=== PATIENT | male | born 1955 | race Caucasian/White ===

== ENCOUNTER 2020-07-09 13:10 | Outpatient (CLI) | payer MEDICARE, SELFPAY ==
[2020-07-09 13:25] LABS: Hematocrit 37.5 % (37.0-46.0); Hemoglobin 12.9 g/dL (12.4-15.3); Immature Granulocyte Absolute 0.03 K/mm3 (0.00-0.00); Immature Granulocyte Percent A 0.5 % (0.0-0.0); Immature Reticulocyte Fraction 3.5 % (2.0-16.52); Lymphocytes Absolute Auto 1.35 K/mm3 (1.10-4.50); Lymphocytes Percent Auto 23.1 % (18.0-42.0); Mean Corpuscular HGB Conc 34.4 g/dL (32.0-36.0); Mean Corpuscular Hemoglobin 30.4 pg (27.0-31.0); Mean Corpuscular Volume 88.2 fL (78.0-102.0); Mean Platelet Volume 8.7 fl (8.7-11.0); Monocytes Absolute Auto 0.46 K/mm3 (0.10-0.90); Monocytes Percent Auto 7.9 % (2.0-11.0); Neutrophils Percent Auto 68.5 % (50.0-70.0); Platelet Count Result 213 K/mm3 (150-420); Red Blood Count 4.25 M/mm3 (4.70-6.10); Red Cell Distribution Width 14.9 % (11.6-14.4); Reticulocyte Hemoglobin Conten 36.2 pg (28.0-35.0); Reticulocyte Percent 1.33 % (0.50-1.50); Reticulocytes Absolute 0.06 M/mm3 (0.02-0.1); White Blood Count 5.9 K/mm3 (4.8-10.8)
[2020-07-09 15:13] LABS: Ferritin 74 ng/mL (26-388); Iron 164 ug/dL (65-175); Percent Iron Saturation 58 % (12-57)
[2020-07-12 01:54] LABS: Methylmalonic Acid 269 nmol/L (87-318)
== END 2020-07-09 13:11 | disposition home or self-care (01) ==
LOC: CHSLAB 13:16
PROVIDERS: PCP Internal Medicine; Visit Provider Internal Medicine
DX: D64.9 Anemia, unspecified (principal)
CPT/HCPCS: 36415; 82728; 83540; 83550; 83921; 85025; 85046; 88321

== ENCOUNTER 2021-05-12 09:37 | Outpatient (CLI) | payer MEDICARE, MEDICAID, SELFPAY ==
--- NOTE | ~2021-05-12 | XR_ITS ---
EXAMINATION: XR chest 2V 05/12/2021 10:04 INDICATION: Anemia and weight loss PROCEDURE: 2 view chest COMPARISON: Comparison to multiple prior studies sequentially, with oldest reviewed study dated 03/13. FINDINGS: The lungs are clear. The cardiomediastinal silhouette is within normal limits. There are no pleural effusions. There is no pneumothorax suspected. The lungs are hyperinflated which is cons istent with, but not diagnostic of chronic obstructive pulmonary disease. IMPRESSION: 1: NO ACUTE CARDIOPULMONARY DISEASE. Reviewed, dictated and finalized at location A.
== END 2021-05-12 09:38 | disposition home or self-care (01) ==
LOC: CHSIMG 09:41
PROVIDERS: PCP Internal Medicine; Visit Provider Internal Medicine
DX: D64.9 Anemia, unspecified (principal); R63.4 Abnormal weight loss; Z12.5 Encounter for screening for malignant neoplasm of prostate
CPT/HCPCS: 71046

== ENCOUNTER 2024-07-18 00:07 | Day surgery (SDC) | payer MEDICARE, SELFPAY ==
[2024-07-06 13:11] VITALS: BMI 27.1
--- NOTE | 2024-07-06 13:48 | PC.NURSE ---
Information on Black was received from [facility] 07/06/24 I spoke with November confirmed appointment and colonoscopy instructions she stated she was familiar with this procedure.
[2024-07-18 06:25] VITALS: BP 140/85; PULSE 75; RESP 18; TEMP 36.3; O2SAT 99
[2024-07-18] MEDS: LACTATED RINGERS 1,000 ML 150 ML IV CONT (06:35)
--- NOTE | 2024-07-18 07:29 | P.HP_ITS ---
H&P: HPI History of Present Illness Date/Time: 07/18/24 07:29 Chief Complaint: Screening for colorectal cancer Narrative: this is a 69-year-old man who presents for colonoscopy. He thinks he has had colonoscopies for. He denies any hematochezia or melena. He denies any family history of colon cancer. Review of Systems Review of Systems: All systems reviewed & are unremarkable except as noted in HPI and below Constitutional: Constitutional: Denies chills, Denies fever(s), Denies headache(s) and Denies weight loss Eyes: Eyes: Denies change in vision ENT: Denies dizziness, Denies headache(s), Denies neck mass and Denies throat swelling Cardiovascular: Cardiovascular: Denies chest pain, Denies lightheadedness and Denies dyspnea Respiratory: Respiratory: Denies cough, Denies dyspnea and Denies wheezing Gastrointestinal: Gastrointestinal: Denies abdominal pain, Denies change in bowel habits, Denies nausea and Denies vomiting Genitourinary: Genitourinary: Denies hematuria and Denies dysuria Musculoskeletal: Musculoskeletal: Reports as per HPI Integumentary/Breasts: Skin/Breast: Reports as per HPI Neurologic: Denies dizziness and Denies headache(s) Allergic/Immunologic: Allergic/Immunologic: Denies throat swelling and Denies wheezing PMFSH Social History Social History Substance use: former Substance use type: crack/cocaine Last use: Living arrangements: assisted living Additional living arrangements comments: [facility] Meds Home Medications and Allergies Home Medications Medication Instructions Recorded Confirmed Type Mylanta Liquid 30 ml PO PRN PRN upset stomach 07/06/24 07/18/24 History acetaminophen 325 mg tablet 325 mg PO PRN PRN Pain 07/06/24 07/18/24 History atenolol 25 mg tablet 25 mg PO HS 07/06/24 07/18/24 History buspirone 5 mg tablet 5 mg PO BID 07/06/24 07/18/24 History carboxymethylcellulose sodium 1 % 1 drp EACH EYE BID PRN Dry Eyes 07/06/24 07/18/24 History eye drops (Artificial Tears (carboxymethylcellulose)) docusate sodium 100 mg capsule 100 mg PO PRN PRN Constipation 07/06/24 07/18/24 History guaifenesin 100 mg/5 mL oral 100 mg PO PRN PRN Cough 07/06/24 07/18/24 History liquid (Chest Congestion Relief) losartan 25 mg tablet 25 mg PO DAILY 07/06/24 07/18/24 History montelukast 10 mg tablet 10 mg PO DAILY 07/06/24 07/18/24 History olanzapine 20 mg tablet 20 mg PO HS 07/06/24 07/18/24 History simvastatin 5 mg tablet 5 mg PO HS 07/06/24 07/18/24 History tamsulosin 0.4 mg capsule 0.4 mg PO BID 07/06/24 07/18/24 History verapamil 180 mg tablet,extended 180 mg PO HS 07/06/24 07/18/24 History release Allergies Allergy/AdvReac Type Severity Reaction Status Date / Time No Known Allergies Allergy Mild Verified 07/18/24 06:22 Vital Signs Vital Signs - 24 hr 07/18/24 06:25 Temperature 97.4 F L Pulse Rate 75 Respiratory Rate 18 Blood Pressure 140/85 Pulse Oximetry 99 Oxygen Delivery Room Air Exam Const: General: no acute distress and alert Orientation/consciousness: patient oriented x3 HENMT: Head: normocephalic and atraumatic Ears: hearing grossly normal bilaterally Face/Nose/Sinus: Normal nares present Mouth: Yes Normal oral and palatal mucosa present Eyes: Periorbital: periorbital findings normal Sclera: sclerae normal EOM: EOMs intact bilaterally Neck: Neck: normal visual inspection, no lymphadenopathy and trachea midline Chest: Chest palpation & inspection: normal inspection of the chest Resp: Effort & Inspection: normal respiratory effort Auscultation: clear to auscultation bilaterally Cardio: Jugular venous distension: no JVD Rate: regular rate Rhythm: regular rhythm Heart sounds: S1 normal heart sound present and S2 normal heart sound present Peripheral pulses: Peripheral pulses 2+ throughout GI: Inspection: normal to inspection GI Palp: Yes Soft to palpation, No Tenderness to palpation present (GI), No Guarding due to palpation present (GI) and No Rebound tenderness present Percussion: Yes normal to percussion Auscultation: normal bowel sounds : General: Yes no CVA tenderness Back/Spine/Pelvis: Back: no CVA tenderness Neuro: General: patient oriented x3, no focal motor deficits and CN's II-XI intact bilaterally Cognition (Neuro): normal cognition Speech: normal speech Motor exam (neuro): 5/5 motor strength present throughout Extrem: General: capillary refill normal and no clubbing, cyanosis or edema Assessment and Plan Assessment and plan (1) Screening for colorectal cancer: Code(s): Z12.11 - Encounter for screening for malignant neoplasm of colon; Z12.12 - Encounter for screening for malignant neoplasm of rectum Status: Acute Assessment and Plan: I have recommended colonoscopy. I have discussed the procedure, risks, benefits, and alternatives. Questions were answered. Patient is agreeable to stu craft.
--- NOTE | 2024-07-18 07:40 | P.PNAN_ITS ---
Anes - Initial Pre Proc Eval Procedure: Operation Date: 07/18/24 07:30 Proposed Procedures p Screening Colonoscopy - Elias Malhotra DO Date/Time: 07/18/24 07:40 Surgeon: Elias Malhotra DO Pre Op Diagnosis: Screening for malignant neoplasm of colon Patient Data Age: 69 Gender: M Height: 1.73 m Weight: 78.1 kg Last Vital Signs Temp 97.4 F L 07/18/24 06:25 Pulse 75 07/18/24 06:25 Resp 18 07/18/24 06:25 BP 140/85 07/18/24 06:25 Pulse Ox 99 07/18/24 06:25 O2 Del Method Room Air 07/18/24 06:25 Allergies Allergy/AdvReac Type Severity Reaction Status Date / Time No Known Allergies Allergy Mild Verified 07/18/24 06:22 Home Medications Medication Instructions Recorded Confirmed Type Mylanta Liquid 30 ml PO PRN PRN upset stomach 07/06/24 07/18/24 History acetaminophen 325 mg tablet 325 mg PO PRN PRN Pain 07/06/24 07/18/24 History atenolol 25 mg tablet 25 mg PO HS 07/06/24 07/18/24 History buspirone 5 mg tablet 5 mg PO BID 07/06/24 07/18/24 History carboxymethylcellulose sodium 1 % 1 drp EACH EYE BID PRN Dry Eyes 07/06/24 07/18/24 History eye drops (Artificial Tears (carboxymethylcellulose)) docusate sodium 100 mg capsule 100 mg PO PRN PRN Constipation 07/06/24 07/18/24 History guaifenesin 100 mg/5 mL oral 100 mg PO PRN PRN Cough 07/06/24 07/18/24 History liquid (Chest Congestion Relief) losartan 25 mg tablet 25 mg PO DAILY 07/06/24 07/18/24 History montelukast 10 mg tablet 10 mg PO DAILY 07/06/24 07/18/24 History olanzapine 20 mg tablet 20 mg PO HS 07/06/24 07/18/24 History simvastatin 5 mg tablet 5 mg PO HS 07/06/24 07/18/24 History tamsulosin 0.4 mg capsule 0.4 mg PO BID 07/06/24 07/18/24 History verapamil 180 mg tablet,extended 180 mg PO HS 07/06/24 07/18/24 History release Patient hx anesthesia problems: none Family hx anesthesia problems: none Results Review: All pre-operative results and documents have been reviewed as part of the pre- operative evaluation. [facility] Social History Social History Substance use: former Substance use type: crack/cocaine Last use: Living arrangements: assisted living Additional living arrangements comments: [facility] Anes - Eval Final PreProcedure Day of Procedure 07/18/24 07:40 Patient weight: normal Heart: regular rate and rhythm Lungs: clear to auscultation Airway: Mallampati scale class II (poor dentition) Neurological: alert and oriented Last oral intake: >/= 8 hours ASA classification: III Emergent: no Anesthetic plan: proceed Anesthesia type and monitoring: general GIVS and standard monitoring Results Review: All pre-operative results and documents have been reviewed as part of the pre- operative evaluation. Informed Consent: The patient's anesthetic plan and its attendant risks and benefits were discussed with the patient/family/POA. Questions were solicited and answers provided to the satisfaction of the patient/family/POA.
[2024-07-18 07:53] VITALS: BP 130/68; PULSE 70; RESP 20; O2SAT 98
[2024-07-18 08:03] VITALS: BP 131/83; PULSE 71; RESP 22; O2SAT 100
[2024-07-18 08:13] VITALS: BP 144/80; PULSE 66; RESP 21; O2SAT 100
== END 2024-07-18 08:26 | disposition home or self-care (01) ==
PROVIDERS: PCP Internal Medicine; Visit Provider Surgery
PROC: 0DJD8ZZ Inspection of Lower Intestinal Tract, Via Natural or Artificial Opening Endoscopic (ICD-10-PCS; CPT 45378; principal; 2024-07-18 07:30)
DX: Z12.11 Encounter for screening for malignant neoplasm of colon (principal)
CPT/HCPCS: G0121; J2003; J2704; J7120